=== PATIENT | female | born 1935 | race Caucasian/White ===

== ENCOUNTER 2016-11-05 15:33 | Observation (INO) ==
--- NOTE | 2016-11-05 16:00 | Emergency Department Note ---
Disposition Clinical Impression: Dehydration, Renal insufficiency Hypotension Qualifiers: Hypotension type: other hypotension type Qualified Code(s): I95.89 - Other hypotension Disposition: Admitted As Inpatient Condition: Good Referrals: NO,PCP [Non-Partnered Physician] - Forms: ED Satisfaction Letter Time of Disposition: 17:25 Weakness HPI - General Chief complaint: ED Weakness Stated complaint: weak, low blood pressure Time Seen by Provider: 11/05/16 15:37 Source: patient Mode of arrival: ambulatory Limitations: no limitations Nursing Notes Reviewed: Yes Vital Signs Reviewed: Yes - History of Present Illness HPI Narrative: 81-year-old female who presents complaining of generalized weakness. Yesterday she states she felt tired, more fatigued than usual. She states when she woke up this morning she just felt generally weak, like she had no energy. No focal weakness. No recent illness. No earache or sore throat. No chest pain. No shortness of breath or cough. No abdominal pain, nausea, vomiting. She states she does urinate frequently, but she is on Lasix, and this is not different from her baseline. No dysuria. She did state that she had felt some tingling in her fingers bilaterally. She states she did take her blood pressure twice today, the first time it was 102 systolic, the second time was 83 systolic. Pt Subjective Complaint: generalized weakness/fatigue Onset (ago): day(s) Duration: constant (1) Location: generalized Migration: none Pain Severity: none Pain Scale: 0 Improves with: none Worsens with: exertion Context: other (No recent changes in her medications.) Associated symptoms: Reports: denies other symptoms - Related Data Home Medications Medication Instructions Recorded Confirmed Amiodarone HCl [Pacerone] 200 mg PO DAILY 11/05/16 11/05/16 Amlodipine Besylate 10 mg PO DAILY 11/05/16 11/05/16 Aspirin Enteric Coated [Aspirin EC] 81 mg PO DAILY 11/05/16 11/05/16 Cholecalciferol (Vitamin D3) 5,000 unit PO DAILY 11/05/16 11/05/16 [Vitamin D3] Furosemide [Lasix] 20 mg PO DAILY 11/05/16 11/05/16 Levothyroxine Sodium [Levoxyl] 75 mcg PO DAILY 11/05/16 11/05/16 Losartan [Cozaar] 50 mg PO DAILY 11/05/16 11/05/16 Rivaroxaban [Xarelto] 15 mg PO DAILY 11/05/16 11/05/16 hydroCHLOROthiazide 12.5 mg PO DAILY 11/05/16 11/05/16 [Hydrochlorothiazide] Allergies Allergy/AdvReac Type Severity Reaction Status Date / Time No Known Allergies Allergy Unverified 03/26/16 11:37 All systems ED: reviewed and negative except as stated. Constitutional: Denies: fever, chills Eyes: Denies: vision change ENT ED: Denies: ear pain, throat pain Cardiovascular: Denies: chest pain, palpitations Respiratory: Denies: cough, dyspnea Gastrointestinal: Denies: abdominal pain, nausea, vomiting, diarrhea Genitourinary: Reports: frequency. Denies: urgency, dysuria, hematuria Musculoskeletal: Denies: back pain Integumentary: Denies: rash Neurological: Reports: paresthesias. Denies: headache, weakness, numbness Past Medical History - Past Medical History Medical history: Reports: atrial fibrillation, cancer ([place]:), CHF, CVA, hypertension, renal disease, thyroid disease, other (Anemia) Psychiatric history: Reports: no psych history - Social History Smoking Status: Former smoker Smokeless Tobacco Status: No Alcohol use: Reports: none Drug use: Reports: none Physical Exam - General Limitations: no limitations General appearance: alert, in no apparent distress - Head Head exam: atraumatic, normocephalic - Eye Eye exam: Present: PERRL, EOMI. Absent: scleral icterus, conjunctival injection - ENT ENT exam: normal oropharynx, mucous membranes moist, TM's normal bilaterally - Neck Neck exam: Present: normal inspection, full ROM, trachea midline. Absent: tenderness, lymphadenopathy - Respiratory Respiratory exam: Present: normal lung sounds bilaterally. Absent: respiratory distress, wheezes - Cardiovascular Cardiovascular exam: Present: regular rate, normal rhythm, normal heart sounds - Abdominal Exam Abdominal exam: Present: soft, Non-Tender, normal bowel sounds. Absent: organomegaly, mass - Extremities Exam Extremities exam: Present: normal inspection, full ROM, normal capillary refill , other (Trace pretibial edema bilaterally. No calf tenderness.) - Back Exam Back exam: Absent: CVA tenderness (R), CVA tenderness (L) - Neurological Exam Neurological exam: Present: alert, oriented X3, CN II-XII intact, normal gait. Absent: motor sensory deficit - Psychiatric Psychiatric exam: Present: normal affect, normal mood - Skin Skin exam: Present: warm, dry, intact, normal color. Absent: cyanosis, diaphoresis Course - Reevaluation(s) Reevaluation #1: Her BUNs is 39 with a creatinine of 2.33. Her last creatinine was on 04/02/16, and was 1.44. Her last BUNs was on 09/24/15, and it was 35. Her creatinine was 1.35 on that date. Diuretics, Lasix and HCTZ. I am going to give her a saline bolus here. We will reevaluate her blood pressures. Time: 16:56 Reevaluation #2: Discussed test results with patient and family. Discussed my concern about her going home with her blood pressure being low, and risk of falls. They are willing to stay for an observation admission for hydration, holding her HCTZ and Lasix. I discussed this with Dr. Kaur. He accepts the patient for observation admission. Time: 17:23 Vital Signs Temperature 98.4 F 11/05/16 15:35 Pulse Rate 57 11/05/16 15:35 Respiratory Rate 16 11/05/16 15:35 Blood Pressure 123/63 11/05/16 15:35 O2 Sat by Pulse Oximetry 99 11/05/16 15:35 Temperature 98.4 F 11/05/16 15:35 Pulse Rate 54 11/05/16 17:07 Respiratory Rate 16 11/05/16 16:45 Blood Pressure 117/51 11/05/16 17:07 O2 Sat by Pulse Oximetry 95 11/05/16 16:45 Oxygen Delivery Oxygen Delivery Room Air Weakness - MDM Narrative Medical decision making narrative: Differential includes but is not limited to duration, anemia, urinary tract infection, viral syndrome, medication reaction, myocardial infarction, congestive heart failure, pneumonia, hypoglycemia, hyperglycemia, hypothyroidism. Her creatinine is gradually increased over the last 13 months on review her old records. She is on Lasix and HCTZ. These will need to be held, some gentle hydration with her history of congestive heart failure. This certainly could be the etiology for her hypotension/weakness/fatigue. - Medical Records Medical records reviewed: Yes I reviewed the patient's medical records. On review of old records patient was noted to have carotid duplex studies done in November of last year. Previous labs were reviewed and compared today's results. - Lab Data Lab results reviewed: Yes I reviewed the patient's lab results. Result diagrams: 11/05/16 16:21 11/05/16 16:21 Lab Results 11/05/16 11/05/16 11/05/16 Range/Units 16:11 16:21 16:21 WBC 7.3 (4.3-11.1) K/mcL RBC 4.16 (3.82-4.97) M/mcL Hgb 12.4 (11.5-15.4) g/dL Hct 37.2 (35.3-44.9) % MCV 89.4 (83.0-100.0) fL MCH 29.8 (28.0-33.3) pg MCHC 33.3 (31.6-35.5) g/dL RDW 14.8 H (11.5-14.5) % Plt Count 439 H (140-400) K/mcL MPV 9.5 (9.4-12.4) fL Immature Gran % 0.4 (0-4) % Seg Neutrophils % 75.0 % Lymphocytes % 14.0 % Monocytes % 9.7 % Eosinophils % 0.4 % Basophils % 0.5 % Neutrophils # 5.5 (1.6-8.9) K/mcL Lymphocytes # 1.0 (0.6-4.6) K/mcL Monocytes # 0.7 (0.0-1.3) K/mcL Eosinophils # 0.0 (0.0-0.6) K/mcL Basophils # 0.0 (0.0-0.2) K/mcL PT 19.5 H (9.4-12.1) Seconds INR 1.8 Sodium (136-145) mEq/L Potassium (3.5-4.5) mEq/L Chloride (98-109) mEq/L Carbon Dioxide (19-29) mEq/L BUN (7-20) mg/dL Creatinine (0.57-1.11) mg/dL Est GFR ( Amer) (> 60) Est GFR (Non-Af Amer) (> 60) BUN/Creatinine Ratio (6-26) Glucose (70-99) mg/dL Calculated Osmolality (280-300) Calcium (8.6-10.8) mg/dL Total Bilirubin (0.2-1.2) mg/dL AST (5-34) Units/L ALT (0-55) Units/L Alkaline Phosphatase (38-126) Units/L Troponin I (0-0.03) ng/mL Serum Total Protein (6.0-8.3) g/dL Albumin (3.5-5.0) g/dL Globulin (2.4-3.5) g/dL Albumin/Globulin Ratio (1.1-2.2) TSH (0.350-4.840) mcIU/mL Urine Color Yellow (Yellow) Urine Clarity Clear (Clear) Urine pH 5.5 (5.0-8.0) pH Units Ur Specific [place] 1.015 (1.010-1.025) Urine Protein Negative (Neg-Trace) mg/dL Urine Glucose (UA) Normal (Normal) mg/dL Urine Ketones Negative (Negative) mg/dL Urine Blood Trace-lysed H (Negative) Urine Nitrite Negative (Negative) Urine Bilirubin Negative (Negative) Urine Urobilinogen Normal (Normal) mg/dL Ur Leukocyte Esterase Negative (Negative) Urine Microscopic RBC 0-3 (0-3) per hpf Urine Microscopic WBC 0-3 (0-3) per hpf Ur Squamous Epith Cells Few (None-Few) per lpf Urine Bacteria Moderate H (None-Few) per hpf Hyaline Casts Many H (None-Few) per lpf Ur Culture Indicated? NO (NO) 11/05/16 11/05/16 Range/Units 16:21 16:21 WBC (4.3-11.1) K/mcL RBC (3.82-4.97) M/mcL Hgb (11.5-15.4) g/dL Hct (35.3-44.9) % MCV (83.0-100.0) fL MCH (28.0-33.3) pg MCHC (31.6-35.5) g/dL RDW (11.5-14.5) % Plt Count (140-400) K/mcL MPV (9.4-12.4) fL Immature Gran % (0-4) % Seg Neutrophils % % Lymphocytes % % Monocytes % % Eosinophils % % Basophils % % Neutrophils # (1.6-8.9) K/mcL Lymphocytes # (0.6-4.6) K/mcL Monocytes # (0.0-1.3) K/mcL Eosinophils # (0.0-0.6) K/mcL Basophils # (0.0-0.2) K/mcL PT (9.4-12.1) Seconds INR Sodium 141 (136-145) mEq/L Potassium 3.7 (3.5-4.5) mEq/L Chloride 105 (98-109) mEq/L Carbon Dioxide 22 (19-29) mEq/L BUN 39 H (7-20) mg/dL Creatinine 2.33 H (0.57-1.11) mg/dL Est GFR ( Amer) 24 L (> 60) Est GFR (Non-Af Amer) 20 L (> 60) BUN/Creatinine Ratio 17 (6-26) Glucose 143 H (70-99) mg/dL Calculated Osmolality 304 H (280-300) Calcium 9.1 (8.6-10.8) mg/dL Total Bilirubin 0.4 (0.2-1.2) mg/dL AST 19 (5-34) Units/L ALT 12 (0-55) Units/L Alkaline Phosphatase 95 (38-126) Units/L Troponin I 0.01 (0-0.03) ng/mL Serum Total Protein 7.5 (6.0-8.3) g/dL Albumin 3.7 (3.5-5.0) g/dL Globulin 3.8 H (2.4-3.5) g/dL Albumin/Globulin Ratio 1.0 L (1.1-2.2) TSH 1.508 (0.350-4.840) mcIU/mL Urine Color (Yellow) Urine Clarity (Clear) Urine pH (5.0-8.0) pH Units Ur Specific [place] (1.010-1.025) Urine Protein (Neg-Trace) mg/dL Urine Glucose (UA) (Normal) mg/dL Urine Ketones (Negative) mg/dL Urine Blood (Negative) Urine Nitrite (Negative) Urine Bilirubin (Negative) Urine Urobilinogen (Normal) mg/dL Ur Leukocyte Esterase (Negative) Urine Microscopic RBC (0-3) per hpf Urine Microscopic WBC (0-3) per hpf Ur Squamous Epith Cells (None-Few) per lpf Urine Bacteria (None-Few) per hpf Hyaline Casts (None-Few) per lpf Ur Culture Indicated? (NO) - Radiology Data Radiology results reviewed: Yes I reviewed the patient's radiology results. ITS Impressions Chest X-Ray 11/05/16 15:56 IMPRESSION: Negative D/ / Sarthak Sosa MD / Sarthak Sosa MD Interpreting Provider: Sarthak Sosa MD - EKG Data EKG attestation: Yes I reviewed and interpreted this EKG. EKG results narrative: Sinus bradycardia, rate of 55, first-degree AV block, nonspecific T-wave flattening. Rhythm strip shows sinus bradycardia with a rate of 55, KS interval 238 ms, QRS 6 ms with no other ectopy is interpreted by me. This is compared to 08/21/13, the T-wave flattening is new, first-degree AV block is new.
[2016-11-05 16:18] LABS: Bilirubin,Urine Negative (Negative); Blood,Urine Trace-lysed (Negative); Clarity,Urine Clear (Clear); Color,Urine Yellow (Yellow); Glucose,Urine (UA) Normal (Normal); Ketones,Urine Negative (Negative); Leukocyte Esterase,Urine Negative (Negative); Nitrite,Urine Negative (Negative); PH,Urine 5.5 pH Units (5.0-8.0); Protein,Urine Negative (Neg-Trace); Specific Gravity,Urine 1.015 (1.010-1.025); Urobilinogen,Urine Normal (Normal)
[2016-11-05 16:27] LABS: Basophils % 0.5 %; Eosinophils % 0.4 %; Hematocrit 37.2 % (35.3-44.9); Hemoglobin 12.4 g/dL (11.5-15.4); Immature Granulocytes % 0.4 % (0-4); Mean Corpuscular HGB Conc 33.3 g/dL (31.6-35.5); Mean Corpuscular Hemoglobin 29.8 pg (28.0-33.3); Mean Corpuscular Volume 89.4 fL (83.0-100.0); Mean Platelet Volume 9.5 fL (9.4-12.4); Monocytes # 0.7 K/mcL (0.0-1.3); Monocytes % 9.7 %; Neutrophils # 5.5 K/mcL (1.6-8.9); Platelet Count 439 K/mcL (140-400); Red Blood Count 4.16 M/mcL (3.82-4.97); Red Cell Distribution Width 14.8 % (11.5-14.5)
[2016-11-05 16:33] LABS: INR 1.8; Prothrombin Time 19.5 Seconds (9.4-12.1)
[2016-11-05 16:36] LABS: Bacteria,Urine Moderate per hpf (None-Few); Squamous Epithelial Cell,Urine Few per lpf (None-Few)
[2016-11-05 16:38] LABS: RBC,Urine 0-3 per hpf (0-3); WBC,Urine 0-3 per hpf (0-3)
[2016-11-05 16:39] LABS: Hyaline Casts,Urine Many per lpf (None-Few)
[2016-11-05 16:45] LABS: Albumin 3.7 g/dL (3.5-5.0); Bilirubin,Total 0.4 mg/dL (0.2-1.2); Calcium 9.1 mg/dL (8.6-10.8); Globulin 3.8 g/dL (2.4-3.5); Potassium 3.7 mEq/L (3.5-4.5); Total Protein 7.5 g/dL (6.0-8.3)
[2016-11-05] MEDS ORDERED: 0.9 % Sodium Chloride 500 ML IVC ONE (16:54)
[2016-11-05 17:05] LABS: Thyroid Stimulating Hormone 1.508 mcIU/mL (0.350-4.840)
[2016-11-05] MEDS ORDERED: 0.9 % Sodium Chloride 1,000 ML IVC SCH (17:51)
[2016-11-05] MEDS ORDERED: Naloxone 0.4 MG/ML INJ IVP PRN (17:51)
[2016-11-05] MEDS: 0.45 % Sodium Chloride w/KCl 20 MEQ/1,000 ML MLS IVC SCH (18:56)
[2016-11-05] MEDS ORDERED: *HR* Rivaroxaban 15 MG TABLET PO ONE (21:13)
[2016-11-05] MEDS ORDERED: Aspirin 81 MG TAB.CHEW PO ONE (21:16)
[2016-11-06 04:58] LABS: Calcium 8.4 mg/dL (8.6-10.8); Potassium 3.4 mEq/L (3.5-4.5)
--- NOTE | 2016-11-06 08:47 | Internal Med History&Physical ---
Date of Encounter: 11/06/16 Time of Encounter: 08:20 Assessment and Plan (1) Acute on chronic renal failure Current visit: Yes Status: Chronic Will hold diuretics and give IV fluids. Recheck renal indices in a.m. Qualifiers: Acute renal failure type: unspecified Chronic kidney disease stage: stage 3 (moderate) Qualified Code(s): N17.9 - Acute kidney failure, unspecified; N18.3 - Chronic kidney disease, stage 3 (moderate) (2) Hypertension Current visit: Yes Status: Chronic Blood pressure well controlled. Will hold diuretics and Cozaar and recheck renal indices in a.m. Continue to monitor blood pressure. Qualifiers: Hypertension type: essential hypertension Qualified Code(s): I10 - Essential (primary) hypertension (3) Atrial fibrillation Current visit: Yes Status: Acute Presently in NSR. Continue amiodarone and Xarelto. Qualifiers: Atrial fibrillation type: unspecified Qualified Code(s): I48.91 - Unspecified atrial fibrillation (4) Hypothyroid Current visit: Yes Status: Chronic TSH was normal in emergency room at 1.508. Continue present dose Synthroid Qualifiers: Hypothyroidism type: unspecified Qualified Code(s): E03.9 - Hypothyroidism , unspecified Internal Medicine - H&P: HPI Chief complaint: Weakness Admitted From: Home Plans for Post Hospital Care: Home History of present illness: Ms. Dewitt is a 81 year old female who came to emergency room complaining of increasing weakness over the past week. It seemed to worsen over the last 24 hours. It was generalized without focal deficits noted. She denies fevers chills nausea vomiting diarrhea dyspnea or other symptoms. She was evaluated in emergency room and found to have acute on chronic renal failure. [facility] She denies past strokes or seizures or similar weakness. Past Med Surg Social Fam HX - Past Medical History Medical history: atrial fibrillation, cancer, CHF, CVA, hypertension, renal disease, thyroid disease, other Psychiatric history: no psych history - Past Surgical History Surgical History: hysterectomy, knee replacement - Social History Smoking Status: Former smoker Smokeless Tobacco Status: No Alcohol use: none Drug use: none Internal Medicine - H&P: Meds Amiodarone HCl [Pacerone] 200 mg PO DAILY 11/05/16 [History] Amlodipine Besylate 10 mg PO DAILY 11/05/16 [History] Aspirin Enteric Coated [Aspirin EC] 81 mg PO DAILY 11/05/16 [History] Cholecalciferol (Vitamin D3) [Vitamin D3] 5,000 unit PO DAILY 11/05/16 [History] Furosemide [Lasix] 20 mg PO DAILY 11/05/16 [History] Levothyroxine Sodium [Levoxyl] 75 mcg PO DAILY 11/05/16 [History] Losartan [Cozaar] 50 mg PO DAILY 11/05/16 [History] Rivaroxaban [Xarelto] 15 mg PO DAILY 11/05/16 [History] hydroCHLOROthiazide [Hydrochlorothiazide] 12.5 mg PO DAILY 11/05/16 [History] Allergies Vgzbklg-Rog-Ghs Reductase Inhibitor [Statins] Allergy (Verified 11/05/16 19:04) Weakness All Systems PM: A 10-system review of systems was performed and is negative for pertinent findings except as documented above in the HPI. Review of systems: Gen.: She states her weight has decreased approximately 8 pounds in the past year. She attributes this to diet modification. Cardiovascular: She has history of hypertension and atrial fibrillation. She has maintained normal sinus rhythm with use of amiodarone. She is uncertain if she has had CHF or NH. She states he had negative EST approximately 2012. She denies DVT or pulmonary embolus. She has noticed some slight swelling in her left leg in the past year. Respiratory: She smoked from age [age] never up to 1 pack per day. She denies known chronic lung disease. She had PFTs March 2016 which showed FEV1/FVC of 0.71. She does not wear home oxygen. GI: She denies disorders of her liver gallbladder or exocrine pancreas : She has been diagnosed with CKD stage III. She denies other kidney or bladder disorders Neurologic: As per history of present illness Endocrine: She has hypothyroidism but denies diabetes or hyperlipidemia Hematology/oncology: She has had basal cell cancer removed from her nose. She had left mastectomy approximately 30 years ago for breast cancer. She had colon cancer diagnosed approximately 10 years ago but is presumed cancer free at this time from all malignancy. She denies anemia Psychiatric: She denies anxiety depression or other mental health issues Musk skeletal: She had a fall and injured her right shoulder several years ago. She had right total knee replacement and has had left meniscal repair. - Constitutional Vitals: Temp Pulse Resp BP Pulse Ox 98.1 F 60 16 126/80 93 11/06/16 07:12 11/06/16 07:12 11/06/16 07:12 11/06/16 07:12 11/06/16 07:12 Exam: Gen.: She is a well-developed well-nourished female who appears in no severe distress at present time HEENT: Head is atraumatic and normocephalic. Eyes: EOMI. There is no scleral icterus. Mouth: Mucosa is moist. Neck: Supple and nontender. There is no thyromegaly or adenopathy noted. Heart: Regular without murmurs gallops or ectopics Lungs: No wheezes or crackles are heard. Abdomen: Soft and nontender. No masses or guarding are noted. Extremities: There is no cyanosis or clubbing noted. She has trace edema of the left leg and no edema the right leg. 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 Neurologic: Mental status: She is talkative and a good historian. Cranial nerves: Smile is symmetric. Forehead wrinkles bilaterally. Tongue protrudes midline. EOMI. Motor: There is no pronator drift. Cerebellar: Finger to nose intact bilaterally. Skin: Warm and dry Internal Med - H&P Results - Labs CBC & Chem 7: 11/05/16 16:21 11/06/16 04:17 Labs: BMP 11/06/16 04:17 Sodium 141 Potassium 3.4 L Chloride 108 Carbon Dioxide 22 BUN 31 H Creatinine 1.65 H Glucose 89 Calcium 8.4 L Cardiac Enzymes 11/05/16 Range/Units 22:26 Troponin I 0.01 (0-0.03) ng/mL - VTE Reasons for not Prescribing Prophylaxis: Not indicated-Anticoagulated or INR therapeutic
[2016-11-06] MEDS ORDERED: *HR* Rivaroxaban 15 MG TABLET PO SCH ×2 (09:00→18:00)
[2016-11-06] MEDS: amLODIPine 5 MG TABLET PO SCH (09:21)
[2016-11-06] MEDS: Aspirin Enteric Coated 81 MG Tablet PO SCH (09:21)
[2016-11-06] MEDS: Cholecalciferol (D-3) 1,000 UNIT TABLET PO SCH (09:21)
[2016-11-06] MEDS: *HR* Amiodarone 200 MG TABLET PO SCH (09:21)
[2016-11-06] MEDS: 0.45 % Sodium Chloride w/KCl 20 MEQ/1,000 ML MLS IVC SCH (11:50)
[2016-11-07] MEDS: 0.45 % Sodium Chloride w/KCl 20 MEQ/1,000 ML MLS IVC SCH (05:33)
[2016-11-07 06:00] LABS: Basophils % 0.3 %; Eosinophils # 0.1 K/mcL (0.0-0.6); Eosinophils % 1.5 %; Hematocrit 35.3 % (35.3-44.9); Hemoglobin 11.5 g/dL (11.5-15.4); Immature Granulocytes % 0.3 % (0-4); Lymphocytes # 1.1 K/mcL (0.6-4.6); Lymphocytes % 18.9 %; Mean Corpuscular HGB Conc 32.6 g/dL (31.6-35.5); Mean Corpuscular Hemoglobin 29.6 pg (28.0-33.3); Mean Corpuscular Volume 90.7 fL (83.0-100.0); Mean Platelet Volume 9.4 fL (9.4-12.4); Monocytes # 0.5 K/mcL (0.0-1.3); Neutrophils # 4.2 K/mcL (1.6-8.9); Platelet Count 365 K/mcL (140-400); Red Blood Count 3.89 M/mcL (3.82-4.97)
[2016-11-07 06:18] LABS: BUN/Creatinine Ratio 17 (6-26); Blood Urea Nitrogen 18 mg/dL (7-20); Calcium 8.8 mg/dL (8.6-10.8); Carbon Dioxide 21 mEq/L (19-29); Chloride 111 mEq/L (98-109); Glucose 90 mg/dL (70-99); Osmolality,Calculated 295 (280-300); Potassium 4.5 mEq/L (3.5-4.5); Sodium 142 mEq/L (136-145); eGFR For African Americans > 60 (> 60); eGFR For Non-African Americans 51 (> 60)
[2016-11-07 07:31] VITALS: BP 104/55
[2016-11-07] MEDS: Cholecalciferol (D-3) 1,000 UNIT TABLET PO SCH (08:30)
[2016-11-07] MEDS: Aspirin Enteric Coated 81 MG Tablet PO SCH (08:31)
--- NOTE | 2016-11-07 09:20 | Discharge Summary ---
Date of Encounter: 11/07/16 Time of Encounter: 09:10 - Discharge Diagnosis (1) Acute on chronic renal failure Priority: Primary Status: Chronic Qualifiers: Acute renal failure type: unspecified Chronic kidney disease stage: stage 3 (moderate) Qualified Code(s): N17.9 - Acute kidney failure, unspecified; N18.3 - Chronic kidney disease, stage 3 (moderate) (2) Hypertension Priority: Secondary Status: Chronic Qualifiers: Hypertension type: essential hypertension Qualified Code(s): I10 - Essential (primary) hypertension (3) Atrial fibrillation Priority: Secondary Status: Chronic Qualifiers: Atrial fibrillation type: chronic Qualified Code(s): I48.2 - Chronic atrial fibrillation (4) Hypothyroid Priority: Secondary Status: Chronic Qualifiers: Hypothyroidism type: unspecified Qualified Code(s): E03.9 - Hypothyroidism , unspecified - Discharge Medications Home Medications: Amiodarone HCl [Pacerone] 200 mg PO DAILY 11/05/16 [History] Aspirin Enteric Coated [Aspirin EC] 81 mg PO DAILY 11/05/16 [History] Cholecalciferol (Vitamin D3) [Vitamin D3] 5,000 unit PO DAILY 11/05/16 [History] Levothyroxine Sodium [Levoxyl] 75 mcg PO DAILY 11/05/16 [History] Rivaroxaban [Xarelto] 15 mg PO DAILY 11/05/16 [History] Amlodipine Besylate 10 mg PO HS #0 11/07/16 [Rx] Allergies/Adverse Reactions: Allergies Glwmvau-Pen-Xax Reductase Inhibitor [Statins] Allergy (Verified 11/05/16 19:04) Weakness Date of admission: 11/05/16 17:46 Primary care physician: Shuhbam Molina MD - Patient Status Disposition: Home, Self-Care Condition: Good Functional capacity at discharge: independent ambulation Overall status at discharge: patient is progressing back to baseline - Discharge Instructions Follow Up With: Shubham Molina MD [Primary Care Provider] - 1 week - Diet and Activity Activity: resume usual activities as tolerated Diet: advance to your usual diet Hospital course: Ms. Dewitt is a 81 year old female who came to emergency room complaining of increasing weakness over the past week. It seemed to worsen over the last 24 hours. It was generalized without focal deficits noted. She denies fevers chills nausea vomiting diarrhea dyspnea or other symptoms. She was evaluated in emergency room and found to have acute on chronic renal failure. She was admitted to [facility] for ongoing care needs. Initial orders were written by the emergency room physician. I saw her on November 06 and performed a history and physical. Cozaar and diuretics were held and IV fluids were given. Her azotemia showed significant improvement with BUN and creatinine being 18 and 1.03 respectively on the day of discharge with estimated GFR 51. She will remain off these medications at discharge. Blood pressure remained satisfactorily controlled. Amlodipine will be changed to bedtime. On November 07 she felt significantly improved and stable for discharge home. She will follow with her PCP Dr. Shubham Molina within one week. - Time Spent with Patient Total time spent providing and/or coordinating discharge services: - Constitutional Vitals: Temp Pulse Resp BP Pulse Ox 98.3 F 54 16 104/55 95 11/07/16 07:29 11/07/16 07:29 11/07/16 07:29 11/07/16 07:29 11/07/16 07:29 - VTE Reasons for not Prescribing Prophylaxis: Not indicated-Anticoagulated or INR therapeutic
[2016-11-07] MEDS: amLODIPine 5 MG TABLET PO SCH (09:28)
[2016-11-07] MEDS: *HR* Amiodarone 200 MG TABLET PO SCH (09:36)
--- NOTE | 2016-11-08 11:49 | Electrocardiograph Report ---
[address] [place], [place] [address] Test Date: 2016-11-05 Pat Name: Nuvia Dewitt Department: [id number] Room: [facility] Gender: F Line Therapist: [id number] : 1935 Requested By: Jerrell Merrill Order Number: [id number] Reading MD: Jimbo Townsend MD Measurements Intervals Candor Rate: 55 P: -15 MN: 238 QRS: 87 QRSD: 106 T: 30 QT: 369 QTc: 358 Interpretive Statements SINUS BRADYCARDIA WITH FIRST DEGREE AV BLOCK BASELINE ARTIFACT Electronically Signed On 11-08-2016 11:47:28 EDT by Jimbo Townsend MD
== END 2016-11-07 09:55 | disposition home or self-care (01) ==
LOC: INPPIK 15:33 → EMEROOPIK 15:33 → INPPIK 18:02
PROVIDERS: ADMIT Internal Medicine; ATTEND Internal Medicine

== ENCOUNTER 2019-04-05 23:39 | Observation (INO) ==
[2019-04-05] MEDS ORDERED: Morphine Sulfate 2 MG/ML SYRINGE IVP ONE (23:40)
[2019-04-05] MEDS ORDERED: Ondansetron 4 MG/2 ML VIAL IVP ONE (23:40)
[2019-04-05] MEDS ORDERED: 0.9 % Sodium Chloride 1,000 ML IVC ONE (23:40)
[2019-04-05 23:58] LABS: Basophils % 0.6 %; Eosinophils # 0.1 K/mcL (0.0-0.6); Eosinophils % 0.8 %; Hematocrit 39.5 % (35.3-44.9); Hemoglobin 13.3 g/dL (11.5-15.4); Immature Granulocytes % 0.3 % (0-4); Lymphocytes # 0.9 K/mcL (0.6-4.6); Lymphocytes % 14.6 %; Mean Corpuscular HGB Conc 33.7 g/dL (31.6-35.5); Mean Corpuscular Hemoglobin 30.3 pg (28.0-33.3); Monocytes # 0.4 K/mcL (0.0-1.3); Monocytes % 6.9 %; Neutrophils # 4.9 K/mcL (1.6-8.9); Platelet Count 470 K/mcL (140-400); Red Blood Count 4.39 M/mcL (3.82-4.97); Red Cell Distribution Width 15.9 % (11.5-14.5); Segmented Neutrophils % 76.8 %; White Blood Count 6.4 K/mcL (4.3-11.1)
[2019-04-06 00:06] LABS: INR 1.1; Prothrombin Time 12.8 Seconds (9.4-12.1)
[2019-04-06 00:08] LABS: Activated Partial Thrombo Time 33.9 Seconds (26.0-36.0)
[2019-04-06 00:18] LABS: Alanine Aminotransferase 10 Units/L (7-52); Albumin 3.7 g/dL (3.5-5.7); Albumin/Globulin Ratio 1.2 (1.1-2.2); Alkaline Phosphatase 51 Units/L (34-104); Amylase 40 Units/L (29-103); Aspartate Amino Transferase 20 Units/L (13-39); BUN/Creatinine Ratio 12 (6-26); Bilirubin,Indirect 0.4 mg/dL (0.0-1.0); Bilirubin,Total 0.4 mg/dL (0.3-1.0); Blood Urea Nitrogen 30 mg/dL (8-23); Calcium 8.7 mg/dL (8.6-10.3); Carbon Dioxide 27 mEq/L (23-29); Chloride 103 mEq/L (98-107); Globulin 3.1 g/dL (2.4-3.5); Glucose 91 mg/dL (70-105); Lipase 35 Units/L (11-82); Osmolality,Calculated 298 (280-300); Sodium 141 mEq/L (136-145); Total Protein 6.8 g/dL (6.4-8.9); Troponin I < 0.03 ng/mL (< 0.04); eGFR For African Americans 23 (> 60); eGFR For Non-African Americans 19 (> 60)
[2019-04-06] MEDS ORDERED: 0.9 % Sodium Chloride 1,000 ML IVC SCH (00:45)
[2019-04-06] MEDS ORDERED: Ondansetron 4 MG/2 ML VIAL IVP PRN (01:26)
[2019-04-06] MEDS ORDERED: Naloxone 0.4 MG/ML INJ IVP PRN (01:26)
[2019-04-06 02:49] LABS: Bilirubin,Urine Negative (Negative); Blood,Urine Negative (Negative); Clarity,Urine Clear (Clear); Color,Urine Yellow (Yellow); Glucose,Urine (UA) Normal (Normal); Ketones,Urine Negative (Negative); Leukocyte Esterase,Urine Negative (Negative); Nitrite,Urine Negative (Negative); PH,Urine 7.5 pH Units (5.0-8.0); Protein,Urine Negative (Neg-Trace); Specific Gravity,Urine 1.015 (1.010-1.025); Urobilinogen,Urine Normal (Normal)
[2019-04-06] MEDS: 0.9 % Sodium Chloride 1,000 ML IVC SCH ×3 (03:31→12:02)
[2019-04-06] MEDS: *HR* Amiodarone 200 MG TABLET PO SCH (08:53)
[2019-04-06] MEDS: Cholecalciferol (D-3) 1,000 UNIT (25MCG) TABLET PO SCH (08:53)
[2019-04-06] MEDS: Cyanocobalamin (B-12) 1,000 MCG TABLET PO SCH (08:53)
[2019-04-06] MEDS: Aspirin Enteric Coated 81 MG Tablet PO SCH (08:53)
[2019-04-06] MEDS ORDERED: *HR* Rivaroxaban 15 MG TABLET PO SCH ×2 (09:00→21:00)
[2019-04-06 16:04] LABS: % Iron Saturation 54 % (15-50); Iron 130 mcg/dL (50-170); Transferrin 171 mg/dL (203-362)
[2019-04-06 16:14] LABS: Ferritin 55 ng/mL (10-120)
[2019-04-06 16:34] LABS: Vitamin B12 > 1500 pg/mL (250-1100); Vitamin D 25 Hydroxy 57 ng/mL (30-80)
[2019-04-06] MEDS ORDERED: amLODIPine 5 MG TABLET PO SCH (21:00)
[2019-04-07] MEDS: 0.9 % Sodium Chloride 1,000 ML IVC SCH (00:49)
[2019-04-07 05:50] LABS: Basophils % 0.7 %; Eosinophils # 0.1 K/mcL (0.0-0.6); Eosinophils % 1.6 %; Hematocrit 33.4 % (35.3-44.9); Hemoglobin 10.8 g/dL (11.5-15.4); Immature Granulocytes % 0.4 % (0-4); Lymphocytes # 0.9 K/mcL (0.6-4.6); Lymphocytes % 15.5 %; Mean Corpuscular HGB Conc 32.3 g/dL (31.6-35.5); Mean Corpuscular Hemoglobin 29.9 pg (28.0-33.3); Mean Corpuscular Volume 92.5 fL (83.0-100.0); Mean Platelet Volume 9.5 fL (9.4-12.4); Monocytes # 0.5 K/mcL (0.0-1.3); Monocytes % 8.7 %; Platelet Count 396 K/mcL (140-400); Red Blood Count 3.61 M/mcL (3.82-4.97); Red Cell Distribution Width 15.9 % (11.5-14.5); Segmented Neutrophils % 73.1 %; White Blood Count 5.5 K/mcL (4.3-11.1)
[2019-04-07 06:06] LABS: Albumin/Globulin Ratio 1.2 (1.1-2.2); Bilirubin,Total 0.4 mg/dL (0.3-1.0); Calcium 7.9 mg/dL (8.6-10.3); Globulin 2.5 g/dL (2.4-3.5); Potassium 3.8 mEq/L (3.5-5.1); Total Protein 5.5 g/dL (6.4-8.9)
[2019-04-07 06:19] LABS: Thyroid Stimulating Hormone 7.321 mcIU/mL (0.340-5.600)
[2019-04-07 06:56] VITALS: BP 182/83
[2019-04-07] MEDS ORDERED: amLODIPine 5 MG TABLET PO ONE (07:12)
[2019-04-07] MEDS: Cholecalciferol (D-3) 1,000 UNIT (25MCG) TABLET PO SCH (09:12)
[2019-04-07] MEDS: Aspirin Enteric Coated 81 MG Tablet PO SCH (09:12)
[2019-04-07] MEDS: Cyanocobalamin (B-12) 1,000 MCG TABLET PO SCH (09:12)
[2019-04-07] MEDS: *HR* Amiodarone 200 MG TABLET PO SCH (09:12)
== END 2019-04-07 11:05 | disposition home or self-care (01) ==
LOC: EMEROOPIK 23:39 → INPPIK 23:39
PROVIDERS: ADMIT Internal Medicine; ATTEND Internal Medicine